=== PATIENT | male | born 1990 | race Caucasian/White ===

== ENCOUNTER 2018-03-11 10:42 | Emergency (ER) | payer OTHER ==
[~2018-03-11] VITALS: Ht 180.3 cm; Wt 71.7 kg
[~2018-03-11 10:42] MED LIST: FLAGYL500 M1 PO; IBUPROFEN 800800 M1 PO; ZOFRAN ODT4 MG PO; [UNRECOGNIZED DRUG - REMARK]
[2018-03-11 10:46] VITALS: BP 114/66
[2018-03-11] MEDS ORDERED: HYDROCODONE-AP1 EAC6 PO (11:54)
[2018-03-11] MEDS ORDERED: KEFLEX500 M1 PO (11:54)
== END 2018-03-11 12:12 | disposition home or self-care (01) ==
LOC: M.ERS 10:42
DX: S61.313A Laceration without foreign body of left middle finger with damage to nail, initial encounter (principal); Z98.890 Other specified postprocedural states; W26.8XXA Contact with other sharp object(s), not elsewhere classified, initial encounter; Y93.89 Activity, other specified; Y92.89 Other specified places as the place of occurrence of the external cause; Y99.0 Civilian activity done for income or pay